=== PATIENT | female | born 1985 | race American Indian/Alaskan Native ===

== ENCOUNTER 2017-03-21 19:19 | Emergency (ER) | payer MEDICAID | END 2017-03-21 21:00 | disposition left against medical advice (07) | LOC: ED 19:19 | DX: J02.9 Acute pharyngitis, unspecified (principal); Z53.21 Procedure and treatment not carried out due to patient leaving prior to being seen by health care provider ==

== ENCOUNTER 2017-05-31 09:16 | Emergency (ER) | payer MEDICAID ==
--- NOTE | 2017-05-31 10:12 | Emergency Department Report ---
Chief Complaint: Headache Stated Complaint: HYPERTENSION Time Seen by Provider: 05/31/17 10:11 - HPI History of Present Illness: Patient reports that she is having nausea and vomited and vomited approximately 6 times this morning. She denies any abdominal or back pain. She says she is having in high blood pressure and said that her headache is severe. She says that it started 2 days ago but it's worse since yesterday located frontally and to the sides of her head. Denies any fever but reports chills. Last menstrual period was 05/22/2017. She said the headache is 8 on a 10 and feels like pressure. She says she took Excedrin and it usually help with her headache but it's not helping now. She said this headache is different from her usual migraine. Patient says primary care doctor is at [facility]. Denies any syncopal episode. Denies any chest pain or shortness of breath. Patient has a history of migraine headache and high blood pressure. - ROS Review of Systems: All systems are negative unless stated in HPI above - Exam Vital Signs: Vital Signs 05/31/17 09:41 Temperature 97.9 F Pulse Rate 93 H Blood Pressure 136/95 O2 Sat by Pulse 100 Oximetry Respiration is 18 Physical Exam: Gen.: This is a 31-year-old female well-nourished well-developed and nontoxic in appearance. Mini neurological exam: GCS of 15, alert and oriented 3, normal gait, no facial droop.. Speech is clear and fluid. Abdomen: Soft, nontender to palpate in all quadrants, no guarding or rebound tenderness and no CVA tenderness. MSE screening note: Focused history and physical exam performed. Due to findings the following was ordered: ED Medical Decision Making - Medical Decision Making MDM: Patient screened by provider in triage area. Appropriate protocol initiated and patient to be seen in main ED by ED Disposition for MSE Condition: Stable
[2017-05-31 10:47] LABS: Basophils % (Auto) 0.6 % (0.0-1.8); Hematocrit 32.8 % (30.3-42.9); Hemoglobin 10.5 gm/dl (10.1-14.3); Mean Corpuscular HGB Conc 32 % (30-34); Mean Corpuscular Hemoglobin 28 pg (28-32); Mean Corpuscular Volume 89 fl (79-97); Platelet Count 342 K/mm3 (140-440); Red Blood Count 3.71 M/mm3 (3.65-5.03); Red Cell Distribution Width 16.9 % (13.2-15.2)
[2017-05-31 10:56] LABS: INR 0.95 (0.87-1.13)
[2017-05-31 11:05] LABS: Alanine Aminotransferase 14 units/L (7-56); Albumin 4.5 g/dL (3.9-5); Albumin/Globulin Ratio 1.2 %; Alkaline Phosphatase 56 units/L (35-129); Anion Gap 17 mmol/L; BUN/Creatinine Ratio 16; Blood Urea Nitrogen 8 mg/dL (7-17); Calcium 9.2 mg/dL (8.4-10.2); Carbon Dioxide 27 mmol/L (22-30); Glucose 102 mg/dL (65-100); Sodium 139 mmol/L (137-145); Total Protein 8.3 g/dL (6.3-8.2)
[2017-05-31 12:10] LABS: Bacteria,Urine 1+ /HPF (Negative); Bilirubin,Urine NEG (Negative); Blood,Urine NEG (Negative); Ketones,Urine NEG (Negative); Leukocyte Esterase,Urine NEG (Negative); Mucus,Urine 1+ /HPF; Nitrite,Urine NEG (Negative); Protein,Urine <15 mg/dL mg/dL (Negative)
--- NOTE | 2017-05-31 12:55 | Cat Scan Report ---
Cranial CT without contrast. History: Headache. Findings: There is no evidence of acute hemorrhage or infarct. The posterior fossa is normal. There are no masses or extra-axial collections. The calvarium is intact. Impression: Negative study.
[2017-05-31] MEDS ORDERED: REGLAN IM ONE (20:15)
[2017-05-31] MEDS ORDERED: BENADRYL IM ONE (20:15)
[2017-05-31] MEDS ORDERED: TORADOL IM ONE (20:15)
--- NOTE | 2017-05-31 20:19 | Emergency Department Report ---
ED Headache HPI - General Chief Complaint: Headache Stated Complaint: HYPERTENSION Time Seen by Provider: 05/31/17 10:11 Source: patient Exam Limitations: no limitations - History of Present Illness Initial Comments: 31-year-old female the past medical history of migraines and hypertension presents to Hospital complaints of headache 2 days. Patient has a history of migraines and states this is similar. Pain is in the bitemporal area, forehead , and top of head. Headache is constant, throbbing and pressure-like, worse with light exposure and sitting upright. Positive associated nausea and vomiting with 4 episodes reported today and 5 episodes yesterday. Denies focal weakness, fever, neck stiffness, or focal numbness. Patient is not currently taking any migraine medication and does not have a current neurologist. Her headache was being managed by her primary care doctor. Allergies/Adverse Reactions: Allergies No Known Allergies Allergy (Verified 10/30/15 10:53) Home Medications: Ambulatory Orders Amoxicillin [Trimox CAP] 500 mg PO Q8H #30 capsule 08/31/15 Benzonatate [Tessalon Perles] 100 mg PO Q8HR #14 capsule 08/31/15 Lisinopril/Hydrochlorothiazide [Zestoretic 20-12.5 mg] 1 tab PO QDAY #30 tab 12/10 Acetaminophen/Codeine [Tylenol #3] 1 tab PO Q6H PRN #8 tab 01/01/16 Cephalexin [Keflex] 500 mg PO Q12HR #10 cap 01/01/16 Cyclobenzaprine [Flexeril] 10 mg PO TID PRN #15 tablet 02/11/16 Ibuprofen [Motrin 800 MG tab] 800 mg PO Q8HR PRN #30 tablet 02/11/16 Fluconazole [Diflucan TAB] 200 mg PO QDAY #1 tablet 04/26/16 metroNIDAZOLE [Flagyl] 500 mg PO Q12HR #14 tab 04/26/16 Butalb/Acetamin/Caff 50-325-40 [Fioricet] 1 tab PO Q6HR PRN #20 tab 05/31/17 HYDROcodone/APAP 5-325 [Mentor 5/325] 1 each PO Q6HR PRN #15 tablet 05/31/17 Ondansetron [Zofran Odt] 4 mg PO Q8HR PRN #20 tab.rapdis 05/31/17 ED Review of Systems ROS: Stated complaint: HYPERTENSION Other details as noted in HPI Comment: All other systems reviewed and negative Other: Constitutional: No fevers chills Eyes: No eye pain visual changes ENT: No ear pain or throat pain Neck: Denies pain Respiratory: Denies cough wheezing shortness of breath Cardiovascular: Denies chest pain, palpitations, syncope GI: Denies abdominal pain, nausea, vomiting, diarrhea : Denies dysuria Musculoskeletal: Denies back pain, joint swelling Skin: Denies rash, lesions, erythema Neurologic: As per HPI Psychiatric: Denies suicidal ideation, hallucinations ED Past Medical Hx - Past Medical History Previous Medical History?: Yes Hx Hypertension: Yes Hx Headaches / Migraines: Yes Additional medical history: Chronic constipation - Surgical History Past Surgical History?: Yes Additional Surgical History: - Social History Smoking Status: Never Smoker Substance Use Type: None - Medications Home Medications: Home Medications Medication Instructions Recorded Confirmed Last Taken Type Amoxicillin [Trimox CAP] 500 mg PO Q8H #30 capsule 08/31/15 01/01/16 Unknown Rx Benzonatate [Tessalon Perles] 100 mg PO Q8HR #14 capsule 08/31/15 01/01/16 Unknown Rx Lisinopril/Hydrochlorothiazide 1 tab PO QDAY #30 tab 08/31/15 01/01/16 Unknown Rx [Zestoretic 20-12.5 mg] Acetaminophen/Codeine [Tylenol #3] 1 tab PO Q6H PRN #8 tab 01/01/16 Unknown Rx Cephalexin [Keflex] 500 mg PO Q12HR #10 cap 01/01/16 Unknown Rx Cyclobenzaprine [Flexeril] 10 mg PO TID PRN #15 tablet 02/11/16 Unknown Rx Ibuprofen [Motrin 800 MG tab] 800 mg PO Q8HR PRN #30 tablet 02/11/16 Unknown Rx Fluconazole [Diflucan TAB] 200 mg PO QDAY #1 tablet 04/26/16 Unknown Rx metroNIDAZOLE [Flagyl] 500 mg PO Q12HR #14 tab 04/26/16 Unknown Rx Butalb/Acetamin/Caff 50-325-40 1 tab PO Q6HR PRN #20 tab 05/31/17 Unknown Rx [Fioricet] HYDROcodone/APAP 5-325 [Ment[place] 1 each PO Q6HR PRN #15 tablet 05/31/17 Unknown Rx 5/325] Ondansetron [Zofran Odt] 4 mg PO Q8HR PRN #20 tab.rapdis 05/31/17 Unknown Rx ED Physical Exam - General Limitations: No Limitations - Other Other exam information: General: No limitations, patient is alert in no acute distress Head exam: Atraumatic, normocephalic Eyes exam: Normal appearance ENT: Moist mucous membrane, normal oropharynx Neck exam: Normal inspection, full range of motion Respiratory exam: Clear to auscultation bilateral, no wheezes, rales, crackles Cardiovascular: Normal rate and rhythm, normal heart sounds Abdomen: Soft, nondistended, and nontender, with normal bowel sounds, no rebound, or guarding Extremity: Full range of motion normal inspection no deformity Back: Normal Inspection, full range of motion, no tenderness Neurologic: Alert, oriented x3, cranial nerves intact, no motor or sensory deficit, [id number] function intact Psychiatric: normal affect, normal mood Skin: Warm, dry, intact ED Course Vital Signs 05/31/17 05/31/17 09:41 20:49 Temperature 97.9 F 98.3 F Pulse Rate 93 H 82 Respiratory 16 Rate Blood Pressure 136/95 Blood Pressure 133/92 [Left] O2 Sat by Pulse 100 99 Oximetry - Reevaluation(s) Reevaluation #1: 05/31/17 20:19 Patient declines IV and wants to go home secondary to the prolonged wait. She is agreeable to receiving IM medication. IM Benadryl, Reglan, and Toradol ordered to help the headache. Patient will be observed to make sure no allergic reaction and discharge home as she requests ED Medical Decision Making - Lab Data Result diagrams: 05/31/17 10:31 05/31/17 10:31 Lab Results 05/31/17 05/31/17 05/31/17 Range/Units 10:31 10:31 10:31 WBC 6.0 (4.5-11.0) K/mm3 RBC 3.71 (3.65-5.03) M/mm3 Hgb 10.5 (10.1-14.3) gm/dl Hct 32.8 (30.3-42.9) % MCV 89 (79-97) fl MCH 28 (28-32) pg MCHC 32 (30-34) % RDW 16.9 H (13.2-15.2) % Plt Count 342 (140-440) K/mm3 Lymph % (Auto) 19.8 (13.4-35.0) % Jones % (Auto) 11.1 H (0.0-7.3) % Eos % (Auto) 1.0 (0.0-4.3) % Baso % (Auto) 0.6 (0.0-1.8) % Lymph # 1.2 (1.2-5.4) K/mm3 Jones # 0.7 (0.0-0.8) K/mm3 Eos # 0.1 (0.0-0.4) K/mm3 Baso # 0.0 (0.0-0.1) K/mm3 Seg Neutrophils % 67.5 (40.0-70.0) % Seg Neutrophils # 4.0 (1.8-7.7) K/mm3 PT 13.2 (12.2-14.9) Sec. INR 0.95 (0.87-1.13) APTT 29.0 (24.2-36.6) Sec. Sodium (137-145) mmol/L Potassium (3.6-5.0) mmol/L Chloride (98-107) mmol/L Carbon Dioxide (22-30) mmol/L Anion Gap mmol/L BUN (7-17) mg/dL Creatinine (0.7-1.2) mg/dL Estimated GFR ml/min BUN/Creatinine Ratio % Glucose (65-100) mg/dL Calcium (8.4-10.2) mg/dL Total Bilirubin (0.1-1.2) mg/dL AST (5-40) units/L ALT (7-56) units/L Alkaline Phosphatase (35-129) units/L Total Protein (6.3-8.2) g/dL Albumin (3.9-5) g/dL Albumin/Globulin Ratio % HCG, Qual Negative (Negative) Urine Color (Yellow) Urine Turbidity (Clear) Urine pH (5.0-7.0) Ur Specific [place] (1.003-1.030) Urine Protein (Negative) mg/dL Urine Glucose (UA) (Negative) mg/dL Urine Ketones (Negative) mg/dL Urine Blood (Negative) Urine Nitrite (Negative) Urine Bilirubin (Negative) Urine Urobilinogen (<2.0) mg/dL Ur Leukocyte Esterase (Negative) Urine WBC (Auto) (0.0-6.0) /HPF Urine RBC (Auto) (0.0-6.0) /HPF U Epithel Cells (Auto) (0-13.0) /HPF Urine Bacteria (Auto) (Negative) /HPF Urine Mucus /HPF 05/31/17 05/31/17 Range/Units 10:31 10:52 WBC (4.5-11.0) K/mm3 RBC (3.65-5.03) M/mm3 Hgb (10.1-14.3) gm/dl Hct (30.3-42.9) % MCV (79-97) fl MCH (28-32) pg MCHC (30-34) % RDW (13.2-15.2) % Plt Count (140-440) K/mm3 Lymph % (Auto) (13.4-35.0) % Jones % (Auto) (0.0-7.3) % Eos % (Auto) (0.0-4.3) % Baso % (Auto) (0.0-1.8) % Lymph # (1.2-5.4) K/mm3 Jones # (0.0-0.8) K/mm3 Eos # (0.0-0.4) K/mm3 Baso # (0.0-0.1) K/mm3 Seg Neutrophils % (40.0-70.0) % Seg Neutrophils # (1.8-7.7) K/mm3 PT (12.2-14.9) Sec. INR (0.87-1.13) APTT (24.2-36.6) Sec. Sodium 139 (137-145) mmol/L Potassium 4.0 (3.6-5.0) mmol/L Chloride 99.0 (98-107) mmol/L Carbon Dioxide 27 (22-30) mmol/L Anion Gap 17 mmol/L BUN 8 (7-17) mg/dL Creatinine 0.5 L (0.7-1.2) mg/dL Estimated GFR > 60 ml/min BUN/Creatinine Ratio 16 % Glucose 102 H (65-100) mg/dL Calcium 9.2 (8.4-10.2) mg/dL Total Bilirubin 0.40 (0.1-1.2) mg/dL AST 22 (5-40) units/L ALT 14 (7-56) units/L Alkaline Phosphatase 56 (35-129) units/L Total Protein 8.3 H (6.3-8.2) g/dL Albumin 4.5 (3.9-5) g/dL Albumin/Globulin Ratio 1.2 % HCG, Qual (Negative) Urine Color Yellow (Yellow) Urine Turbidity Hazy (Clear) Urine pH 7.0 (5.0-7.0) Ur Specific [place] 1.014 (1.003-1.030) Urine Protein <15 mg/dl (Negative) mg/dL Urine Glucose (UA) Neg (Negative) mg/dL Urine Ketones Neg (Negative) mg/dL Urine Blood Neg (Negative) Urine Nitrite Neg (Negative) Urine Bilirubin Neg (Negative) Urine Urobilinogen 2.0 (<2.0) mg/dL Ur Leukocyte Esterase Neg (Negative) Urine WBC (Auto) 1.0 (0.0-6.0) /HPF Urine RBC (Auto) 4.0 (0.0-6.0) /HPF U Epithel Cells (Auto) 16.0 H (0-13.0) /HPF Urine Bacteria (Auto) 1+ (Negative) /HPF Urine Mucus 1+ /HPF - Radiology Data Radiology results: report reviewed (CT head: No acute findings) - Medical Decision Making CT unremarkable. Patient states headache is similar to previous migraines. No current migraine medication. Given a history of hypertension has attempted to give Imitrex at this time. She did with IM migraine cocktail prior to discharge because patient refused IV medication. We'll discharge home on medication. - Differential Diagnosis migraines, intracranial hemorrhage, dehydration, htn Critical Care Time: No Critical care attestation.: If time is entered above; I have spent that time in minutes in the direct care of this critically ill patient, excluding procedure time. ED Disposition Clinical Impression: Migraine Disposition: DC-01 TO HOME OR SELFCARE Is pt being admited?: No Condition: Stable Instructions: Migraine Headache (ED) Additional Instructions: Take the medication as prescribed. Follow-up with your doctor in the neurologist provided. Return if symptoms worsen Prescriptions: Butalb/Acetamin/Caff 50-325-40 [Fioricet] 1 tab PO Q6HR PRN #20 tab PRN Reason: Headache HYDROcodone/APAP 5-325 [Mentor 5/325] 1 each PO Q6HR PRN #15 tablet PRN Reason: Pain Ondansetron [Zofran Odt] 4 mg PO Q8HR PRN #20 tab.rapdis PRN Reason: Nausea And Vomiting Referrals: BROCK MCMILLAN MD [Staff Physician] - 3-5 Days Time of Disposition: 20:55
[2017-05-31 20:51] VITALS: BP 133/92
== END 2017-05-31 20:54 | disposition home or self-care (01) ==
LOC: ED 09:16
DX: G43.909 Migraine, unspecified, not intractable, without status migrainosus (principal); I10 Essential (primary) hypertension
CPT/HCPCS: 36415; 70450; 80053; 81001; 84703; 85025; 85610; 85730; 96372; 99284; J1200; J1885; J2765

== ENCOUNTER 2019-09-09 13:28 | Emergency (ER) | payer MEDICAID | END 2019-09-09 16:57 | disposition left against medical advice (07) | LOC: ED 13:28 | DX: J02.9 Acute pharyngitis, unspecified (principal); Z53.21 Procedure and treatment not carried out due to patient leaving prior to being seen by health care provider ==

== ENCOUNTER 2020-05-08 09:37 | Emergency (ER) | payer MEDICAID ==
[2020-05-08 18:47] VITALS: BP 146/82
[2020-05-08 19:12] LABS: HCG Qualitative,Urine Negative (Negative)
[2020-05-08 19:14] LABS: Bilirubin,Urine NEG (Negative); Blood,Urine NEG (Negative); Color,Urine Yellow (Yellow); Mucus,Urine 3+ /HPF; Protein,Urine <15 mg/dL mg/dL (Negative)
[2020-05-08] MEDS ORDERED: IBUPROFEN 800 MG TAB PO ONE (19:57)
[2020-05-08] MEDS ORDERED: cephALEXin 500 MG CAP PO ONE (19:58)
--- NOTE | 2020-05-08 20:55 | Emergency Department Report ---
ED General Adult HPI - General Chief complaint: Earache Stated complaint: EAR ACHE/DARK URINE Time Seen by Provider: 05/08/20 11:08 Source: patient Mode of arrival: Ambulatory Limitations: No Limitations - History of Present Illness Initial comments: Patient is a 34-year-old female who presents for left ear pain and dysuria x1 week. Patient denies fevers or chills there is no throat pain. Dysuria rated at 3/10, with some urinary frequency. Patient denies vaginal discharge. There is no nausea vomiting no back pain. Symptoms are exacerbated by activity. Symptoms are relieved by nothing tried. Severity scale (0 -10): 3 - Related Data Previous Rx's Medication Instructions Recorded Last Taken Type Amoxicillin [Trimox CAP] 500 mg PO BID #20 capsule 03/21/19 Unknown Rx Ibuprofen [Motrin] 800 mg PO Q8HR PRN #30 tablet 03/21/19 Unknown Rx Ibuprofen [Motrin 800 MG tab] 800 mg PO Q8HR PRN #30 tablet 05/08/20 Unknown Rx cephALEXin [Keflex] 500 mg PO BID 7 Days #14 cap 05/08/20 Unknown Rx Allergies Allergy/AdvReac Type Severity Reaction Status Date / Time No Known Allergies Allergy Verified 03/21/19 11:19 ED Review of Systems ROS: Stated complaint: EAR ACHE/DARK URINE Other details as noted in HPI Constitutional: denies: chills, fever Eyes: denies: eye pain, eye discharge, vision change ENT: ear pain. denies: dental pain, congestion Respiratory: denies: cough, shortness of breath, wheezing Cardiovascular: denies: chest pain, palpitations Endocrine: no symptoms reported Gastrointestinal: as per HPI. denies: abdominal pain, nausea, vomiting Genitourinary: urgency, dysuria, frequency. denies: discharge Musculoskeletal: denies: back pain Skin: denies: rash, lesions Neurological: denies: headache, weakness, paresthesias Psychiatric: denies: anxiety, depression Hematological/Lymphatic: denies: easy bleeding, easy bruising ED Past Medical Hx - Past Medical History Previous Medical History?: Yes Hx Hypertension: Yes Hx Headaches / Migraines: Yes Additional medical history: Chronic constipation - Surgical History Past Surgical History?: Yes Additional Surgical History: - Social History Smoking Status: Never Smoker Substance Use Type: None - Medications Home Medications: Home Medications Medication Instructions Recorded Confirmed Last Taken Type Amoxicillin [Trimox CAP] 500 mg PO BID #20 capsule 03/21/19 Unknown Rx Ibuprofen [Motrin] 800 mg PO Q8HR PRN #30 tablet 03/21/19 Unknown Rx Ibuprofen [Motrin 800 MG tab] 800 mg PO Q8HR PRN #30 tablet 05/08/20 Unknown Rx cephALEXin [Keflex] 500 mg PO BID 7 Days #14 cap 05/08/20 Unknown Rx ED Physical Exam - General Limitations: No Limitations General appearance: alert, in no apparent distress - Head Head exam: Present: atraumatic, normocephalic - Eye Eye exam: Present: normal appearance, EOMI Pupils: Present: normal accommodation - ENT ENT exam: Present: normal orophraynx, mucous membranes moist, normal external ear exam - Expanded ENT Exam Expanded Ear exam: Present: normal external inspection TM/Canal exam: Erythema: Left TM, Loss of Landmarks: Left TM, Canal Tenderness: Left TM Throat exam: Positive: normal inspection - Neck Neck exam: Present: normal inspection, full ROM. Absent: tenderness, lymphadenopathy - Respiratory Respiratory exam: Present: normal lung sounds bilaterally. Absent: respiratory distress, wheezes, stridor - Cardiovascular Cardiovascular Exam: Present: regular rate, normal rhythm, normal heart sounds - GI/Abdominal GI/Abdominal exam: Present: soft, normal bowel sounds. Absent: distended, tenderness, guarding, rebound, rigid, bruit, hernia - Rectal Rectal exam: Present: deferred - Extremities Exam Extremities exam: Present: normal inspection, full ROM. Absent: tenderness - Back Exam Back exam: Present: normal inspection, full ROM. Absent: tenderness, CVA tenderness (R), CVA tenderness (L) - Neurological Exam Neurological exam: Present: alert, oriented X3, CN II-XII intact, normal gait - Psychiatric Psychiatric exam: Present: normal affect, normal mood - Skin Skin exam: Present: warm, dry, intact, normal color. Absent: rash ED Course Vital Signs 05/08/20 05/08/20 05/08/20 10:23 18:41 18:47 Temperature 98.5 F Pulse Rate 78 80 Respiratory 18 18 18 Rate Blood Pressure 148/85 146/82 [Right] O2 Sat by Pulse 100 100 Oximetry ED Medical Decision Making - Lab Data Labs 05/08/20 18:41 Urine Color Yellow Urine Turbidity Clear Urine pH 6.0 Ur Specific [place] 1.029 Urine Protein <15 mg/dl Urine Glucose (UA) Neg Urine Ketones Neg Urine Blood Neg Urine Nitrite Neg Ur Reducing Substances Not Reportable Urine Bilirubin Neg Urine Ictotest Not Reportable Urine Urobilinogen 4.0 Ur Leukocyte Esterase Tr Urine WBC (Auto) 14.0 H Urine RBC (Auto) 18.0 U Epithel Cells (Auto) 5.0 Urine Mucus 3+ Urine HCG, Qual Negative - Medical Decision Making Plan treat for otitis and UTI. Patient DC'd home with prescriptions for NSAIDs and follow-up with PCP in 2 to 3 days. Patient verbalized agreement and understanding with discharge plan. Patient DC'd home in stable condition at this time. Critical care attestation.: If time is entered above; I have spent that time in minutes in the direct care of this critically ill patient, excluding procedure time. ED Disposition Clinical Impression: UTI (urinary tract infection) Qualifiers: Urinary tract infection type: acute cystitis Hematuria presence: without hematuria Qualified Code(s): N30.00 - Acute cystitis without hematuria AOM (acute otitis media) Qualifiers: Otitis media type: serous Laterality: left Recurrence: non-recurrent Qualified Code(s): H65.02 - Acute serous otitis media, left ear Disposition: DC-01 TO HOME OR SELFCARE Is pt being admited?: No Does the pt Need Aspirin: No Condition: Stable Prescriptions: cephALEXin [Keflex] 500 mg PO BID 7 Days #14 cap Ibuprofen [Motrin 800 MG tab] 800 mg PO Q8HR PRN #30 tablet PRN Reason: pain Referrals: WINDY OWENS MD [Staff Physician] - 3-5 Days Forms: Work/School Release Form(ED) Time of Disposition: 20:57
== END 2020-05-08 21:05 | disposition home or self-care (01) ==
LOC: ED 09:37
DX: N39.0 Urinary tract infection, site not specified (principal); H65.02 Acute serous otitis media, left ear; I10 Essential (primary) hypertension; G43.909 Migraine, unspecified, not intractable, without status migrainosus; Z79.899 Other long term (current) drug therapy; Z98.890 Other specified postprocedural states
CPT/HCPCS: 81001; 81025; 87086; 99283

== ENCOUNTER 2020-06-30 20:26 | Emergency (ER) | payer MEDICAID ==
[2020-06-30 20:50] VITALS: BP 139/96
--- NOTE | 2020-06-30 21:06 | Emergency Department Report ---
Chief Complaint: Sore Throat Stated Complaint: FLU SX/BODYACHES Time Seen by Provider: 06/30/20 20:59 - HPI History of Present Illness: 35-year-old -[place] female presents to the emergency room for 1 day history of sore throat body aches and cough. Patient states that she has been taking [id number] [place] plus. Patient did not follow-up with her primary care provider stating that he is out of town and she did not want to see the other provider that she is not familiar with. Patient has not had a Covid test. She denies any nausea vomiting no chest pain or shortness of breath. - Exam Vital Signs: Vital Signs 06/30/20 20:47 Temperature 97.7 F Pulse Rate 89 Respiratory 17 Rate Blood Pressure 139/96 O2 Sat by Pulse 97 Oximetry Physical Exam: Gen: alert oriented NAD Cardic: regular rate and rhythm no murmurs appreciated Resp: Clear to auscultation bilateral no wheezing no rales or rhonchi. Abdomen: Soft nontender nondistended normal bowel sounds. Ambulatory without difficulties full range of motion of all extremities able to speak in complete sentences talking on the phone. MSE screening note: Focused history and physical exam performed. Due to findings the following was ordered: 35-year-old -[place] female presents to the emergency room for 1 day history of sore throat body aches and cough. Patient states that she has been taking [id number] [place] plus. Patient did not follow-up with her primary care provider stating that he is out of town and she did not want to see the other provider that she is not familiar with. Patient has not had a Covid test. She denies any nausea vomiting no chest pain or shortness of breath. Recommend to continue [id number] cold medication. Covid testing center paperwork given. Information on Covid and viral infections. ED Disposition for MSE Disposition: MED SCREENING EXAM-LEFT Is pt being admited?: No Does the pt Need Aspirin: No Condition: Stable Additional Instructions: Your symptoms appear most consistent with a nonspecific viral syndrome. However, given this current pandemic, COVID-19 is in the differential of possibilities. Despite your previous negative COVID-19 test, I do recommend repeat outpatient Covid 19 testing. In the meantime, isolate/quarantine yourself and stay away from anyone who is elderly, immunocompromised or chronically ill. You can use ibuprofen every 6-8 hours and Tylenol every 4-8 hours, using the dosing on the back of the bottle, as needed for any fever or body aches. Return to the emergency department with any worsening of your symptoms, development of chest pain or shortness of breath, or with any acute distress. Referrals: Your, Primary Care Provider [Other] - 3-5 Days
== END 2020-06-30 22:31 | disposition left against medical advice (07) ==
LOC: ED 20:26
DX: J02.9 Acute pharyngitis, unspecified (principal); R05 Cough; Z53.21 Procedure and treatment not carried out due to patient leaving prior to being seen by health care provider

== ENCOUNTER 2021-03-02 09:49 | Emergency (ER) | payer MEDICAID ==
[2021-03-02 09:59] VITALS: BP 137/90
--- NOTE | 2021-03-02 10:23 | Emergency Department Report ---
- General Chief Complaint: Dyspnea/Respdistress Stated Complaint: FEVER/CHILLS/COUGH/HEADACHES PUI?: Yes Time Seen by Provider: 03/02/21 10:19 Source: patient Mode of arrival: Ambulatory Limitations: No Limitations - History of Present Illness Initial Comments: The patient was evaluated in the emergency department for symptoms described in the history of present illness. He/she was evaluated in the context of the global COVID-19 pandemic, which necessitated consideration that the patient might be at risk for infection with the virus that causes COVID-19. Institutional protocols and algorithms that pertain to the evaluation of patients at risk for COVID-19 are in a state of rapid change based on information released by regulatory bodies including the CDC and federal and state organizations. These policies and algorithms were followed during the patient's care in the emergency department. Please note that these policies, procedures and recommendations changed on a rapid basis. 35-year-old -[place] female presents to the emergency room as an unvaccinated patient with 1 week of intermittent headaches 3-day history of fever chills and cough for 2 days. Patient states she has no taste of smell. She denies any shortness of breath she denies any chest pain no diarrhea no nausea no vomiting. Patient denies any past medical history. She does report has an appointment on Tuesday with her primary care provider at [facility]. Patient states she started taking [id number] medicines. MD Complaint: fever, cough, rhinorrhea, nasal congestion Onset/Timin -: week(s) Severity scale (0 -10): 4 Consistency: constant Improves With: nothing Worsens With: nothing Context: sick contacts Associated Symptoms: fever, chills, headache, rhinorrhea, nasal congestion. denies: sore throat, shortness of breath, abdominal pain, nausea, vomiting, diarrhea Treatments Prior to Arrival: none - Related Data Previous Rx's Medication Instructions Recorded Last Taken Type Amoxicillin [Trimox CAP] 500 mg PO BID #20 capsule 03/21/19 Unknown Rx Ibuprofen [Motrin] 800 mg PO Q8HR PRN #30 tablet 03/21/19 Unknown Rx Ibuprofen [Motrin 800 MG tab] 800 mg PO Q8HR PRN #30 tablet 05/08/20 Unknown Rx cephALEXin [Keflex] 500 mg PO BID 7 Days #14 cap 05/08/20 Unknown Rx Allergies Allergy/AdvReac Type Severity Reaction Status Date / Time No Known Allergies Allergy Verified 03/21/19 11:19 ED Review of Systems ROS: Stated complaint: FEVER/CHILLS/COUGH/HEADACHES Other details as noted in HPI ED Past Medical Hx - Past Medical History Previous Medical History?: Yes Hx Hypertension: Yes Hx Headaches / Migraines: Yes Additional medical history: Chronic constipation - Surgical History Past Surgical History?: Yes Additional Surgical History: x1 - Social History Smoking Status: Never Smoker Substance Use Type: None - Medications Home Medications: Home Medications Medication Instructions Recorded Confirmed Last Taken Type Amoxicillin [Trimox CAP] 500 mg PO BID #20 capsule 03/21/19 Unknown Rx Ibuprofen [Motrin] 800 mg PO Q8HR PRN #30 tablet 03/21/19 Unknown Rx Ibuprofen [Motrin 800 MG tab] 800 mg PO Q8HR PRN #30 tablet 05/08/20 Unknown Rx cephALEXin [Keflex] 500 mg PO BID 7 Days #14 cap 05/08/20 Unknown Rx ED Physical Exam - General Limitations: No Limitations General appearance: alert, in no apparent distress - Head Head exam: Present: atraumatic, normocephalic - Eye Eye exam: Present: normal appearance - ENT ENT exam: Present: mucous membranes moist - Neck Neck exam: Present: normal inspection - Respiratory Respiratory exam: Present: normal lung sounds bilaterally. Absent: respiratory distress, wheezes, accessory muscle use - Cardiovascular Cardiovascular Exam: Present: regular rate, normal rhythm. Absent: systolic murmur, diastolic murmur, rubs, gallop - GI/Abdominal GI/Abdominal exam: Present: soft, normal bowel sounds - Extremities Exam Extremities exam: Present: normal inspection - Back Exam Back exam: Present: normal inspection - Neurological Exam Neurological exam: Present: alert, oriented X3 - Psychiatric Psychiatric exam: Present: normal affect, normal mood - Skin Skin exam: Present: warm, dry, intact, normal color. Absent: rash ED Course Vital Signs 03/02/21 09:57 Temperature 99.9 F H Pulse Rate 98 H Respiratory 20 Rate Blood Pressure 137/90 O2 Sat by Pulse 100 Oximetry ED Medical Decision Making - Medical Decision Making 35-year-old -[place] female presents to the emergency room as an unvaccinated patient with 1 week of intermittent headaches 3-day history of fever chills and cough for 2 days. Patient states she has no taste of smell. She denies any shortness of breath she denies any chest pain no diarrhea no nausea no vomiting. Patient denies any past medical history. She does report has an appointment on Tuesday with her primary care provider at [facility]. Patient states she started taking [id number] medicines. Discussed with patient she needs to get Covid testing. She can treat her symptoms with [id number]-[id number] medications. Keep her appointment with her primary care provider. Critical care attestation.: If time is entered above; I have spent that time in minutes in the direct care of this critically ill patient, excluding procedure time. ED Disposition Clinical Impression: Viral syndrome Disposition: HOME / SELF CARE / HOMELESS Is pt being admited?: No Does the pt Need Aspirin: No Condition: Stable Additional Instructions: Your symptoms appear most consistent with a nonspecific viral syndrome. However, given this current pandemic, COVID-19 is in the differential of possibilities. I do recommend outpatient Covid 19 testing. In the meantime, isolate/quarantine yourself and stay away from anyone who is elderly, immunocompromised or chronically ill. You can use ibuprofen every 6-8 hours and Tylenol every 4-8 hours, using the dosing on the back of the bottle, as needed for any fever or body aches. Return to the emergency department with any worsening of your symptoms, development of chest pain or shortness of breath, or with any acute distress. Time of Disposition: 10:23
== END 2021-03-02 10:30 | disposition home or self-care (01) ==
LOC: ED 09:49
DX: B34.9 Viral infection, unspecified (principal); I10 Essential (primary) hypertension; K59.00 Constipation, unspecified; G43.909 Migraine, unspecified, not intractable, without status migrainosus; Z98.890 Other specified postprocedural states
CPT/HCPCS: 99281

== ENCOUNTER 2021-06-13 04:35 | Emergency (ER) | payer MEDICAID ==
[2021-06-13] MEDS ORDERED: diphenhydrAMINE 50 MG/ML VIAL IM ONE (08:15)
[2021-06-13] MEDS ORDERED: METOCLOPRAMIDE 10 MG/2 ML INJ IM ONE (08:15)
[2021-06-13] MEDS ORDERED: KETOROLAC 30 MG/1 ML INJ IM ONE (08:15)
--- NOTE | 2021-06-13 08:19 | Emergency Department Report ---
ED Headache HPI - General Chief Complaint: Headache Stated Complaint: MIGRAINE Time Seen by Provider: 06/13/21 08:13 Source: patient - History of Present Illness Initial Comments: 36-year-old -Citizen Of [place] female presents to the emergency room complaining of a migraine headache x2 days. Patient reports that she has nausea and vomiting. She states that she does not get migraines often. She states that the headache is now located in the frontal it was in the back now has migrated to the front. She denies any nasal congestion denies any runny nose she does admit to photophobia. She currently takes no meds on a daily basis. Does not have a neurologist at this time. She is followed by [place] primary care provider. Recent falls or injuries. Denies any head injuries. Denies any change in vision. Timing/Duration: other (48 hours) Quality: throbbing Recent Head Trauma: no recent headache/trauma Modifying Factors: improves with: exposure to light Associated Symptoms: nausea/vomiting. denies: facial pain, fever/chills, flushing, loss of consciousness, nasal congestion, nasal drainage, numbness in legs/feet, rash, seizures, sinus infection, stiff neck, vision changes, weakness Allergies/Adverse Reactions: Allergies No Known Allergies Allergy (Verified 03/21/19 11:19) Home Medications: Ambulatory Orders Amoxicillin [Trimox CAP] 500 mg PO BID #20 capsule 03/21/19 Ibuprofen [Motrin] 800 mg PO Q8HR PRN #30 tablet 03/21/19 Ibuprofen [Motrin 800 MG tab] 800 mg PO Q8HR PRN #30 tablet 05/08/20 cephALEXin [Keflex] 500 mg PO BID 7 Days #14 cap 05/08/20 Butalb/Acetaminophen/Caffeine [Fioricet 50-300-40 mg CAP] 1 cap PO Q8HR PRN #15 cap 06/13/21 ED Review of Systems ROS: Stated complaint: MIGRAINE Other details as noted in HPI Comment: All other systems reviewed and negative ED Past Medical Hx - Past Medical History Previous Medical History?: Yes Hx Hypertension: Yes Hx Headaches / Migraines: Yes Additional medical history: Chronic constipation - Surgical History Past Surgical History?: Yes Additional Surgical History: x1 - Social History Smoking Status: Never Smoker Substance Use Type: None - Medications Home Medications: Home Medications Medication Instructions Recorded Confirmed Last Taken Type Amoxicillin [Trimox CAP] 500 mg PO BID #20 capsule 03/21/19 Unknown Rx Ibuprofen [Motrin] 800 mg PO Q8HR PRN #30 tablet 03/21/19 Unknown Rx Ibuprofen [Motrin 800 MG tab] 800 mg PO Q8HR PRN #30 tablet 05/08/20 Unknown Rx cephALEXin [Keflex] 500 mg PO BID 7 Days #14 cap 05/08/20 Unknown Rx Butalb/Acetaminophen/Caffeine 1 cap PO Q8HR PRN #15 cap 06/13/21 Unknown Rx [Fioricet 50-300-40 mg CAP] ED Physical Exam - General Limitations: No Limitations General appearance: alert, in no apparent distress - Head Head exam: Present: atraumatic, normocephalic - Eye Eye exam: Present: normal appearance - ENT ENT exam: Present: mucous membranes moist - Neck Neck exam: Present: normal inspection - Respiratory Respiratory exam: Present: normal lung sounds bilaterally. Absent: respiratory distress - Cardiovascular Cardiovascular Exam: Present: regular rate, normal rhythm. Absent: systolic murmur, diastolic murmur, rubs, gallop - GI/Abdominal GI/Abdominal exam: Present: soft, normal bowel sounds - Extremities Exam Extremities exam: Present: normal inspection - Back Exam Back exam: Present: normal inspection - Neurological Exam Neurological exam: Present: alert, oriented X3 - Psychiatric Psychiatric exam: Present: normal affect, normal mood - Skin Skin exam: Present: warm, dry, intact, normal color. Absent: rash ED Course Vital Signs 06/13/21 04:37 Temperature 98.0 F Pulse Rate 84 Respiratory 18 Rate Blood Pressure 131/77 O2 Sat by Pulse 99 Oximetry ED Medical Decision Making - Medical Decision Making 36-year-old -Citizen Of [place] female presents to the emergency room complaining of a migraine headache x2 days. Patient reports that she has nausea and vomiting. She states that she does not get migraines often. She states that the headache is now located in the frontal it was in the back now has migrated to the front. She denies any nasal congestion denies any runny nose she does admit to photophobia. She currently takes no meds on a daily basis. Does not have a neurologist at this time. She is followed by [place] primary care provider. Recent falls or injuries. Denies any head injuries. Denies any change in vision. Toradol, Reglan, Benadryl IM. Patient be discharged home with a prescription for Fioricet. She is encouraged to increase her fluid intake advance her diet as tolerated. She will be referred to them neurologist. Critical care attestation.: If time is entered above; I have spent that time in minutes in the direct care of this critically ill patient, excluding procedure time. ED Disposition Clinical Impression: Migraine headache with aura Disposition: HOME / SELF CARE / HOMELESS Is pt being admited?: No Does the pt Need Aspirin: No Condition: Stable Instructions: Migraine Headache, [id number] Additional Instructions: Please increase your fluid intake advance your diet as tolerated. Take your Fioricet as needed for your migraine and follow-up with the neurologist. Prescriptions: Butalb/Acetaminophen/Caffeine [Fioricet 50-300-40 mg CAP] 1 cap PO Q8HR PRN #15 cap PRN Reason: Headache Referrals: [facility] [Other] - 3-5 Days LESLIE JENNINGS II, MD [Staff Physician] - 3-5 Days Forms: Work/School Release Form(ED) Time of Disposition: 08:21
[2021-06-13 08:53] VITALS: BP 130/78
== END 2021-06-13 08:53 | disposition home or self-care (01) ==
LOC: ED 04:35
DX: G43.119 Migraine with aura, intractable, without status migrainosus (principal); I10 Essential (primary) hypertension
CPT/HCPCS: 96372; 99282; J1200; J1885; J2765